=== PATIENT | male | born 1970 | race Hispanic/Latino ===

== ENCOUNTER 2018-11-28 05:30 | Day surgery (SDC) | payer BC, OTHER ==
[~2018-11-28] VITALS: Ht 165.1 cm; Wt 62.1 kg
[~2018-11-28 05:30] MED LIST: GABA800T9 PO; METF500T7 PO; TRAM50TA4 PO
[2018-11-28 05:48] VITALS: BP 144/78
[2018-11-28] MEDS ORDERED: SODIUM CHLORIDE 0.9% 1000ML 1,000 ML IV ONE (05:51)
[2018-11-28] MEDS ORDERED: CHOLESTEROL MED (06:29)
[2018-11-28] MEDS ORDERED: OCREVUS (06:29)
[2018-11-28] MEDS ORDERED: PROPOFOL 10 MG/ML 20ML VIAL IV ONE ×2 (06:43)
[2018-11-28] MEDS ORDERED: LIDOCAINE HCL 1% 20 ML VIAL ONE (06:43)
[2018-11-28 07:10] VITALS: BP 102/68
[2018-11-28 07:15] VITALS: BP 103/69
[2018-11-28 07:20] VITALS: BP 146/86
[2018-11-28 07:25] VITALS: BP 132/68
[2018-11-28 07:30] VITALS: BP 130/69
== END 2018-11-28 07:39 | disposition home or self-care (01) ==
LOC: DAH 05:30 → ENDO 05:30
PROVIDERS: ATTEND Internal Medicine
DX: K29.50 Unspecified chronic gastritis without bleeding (principal); K31.89 Other diseases of stomach and duodenum; K22.8 Other specified diseases of esophagus; E78.1 Pure hyperglyceridemia; K21.9 Gastro-esophageal reflux disease without esophagitis; E11.9 Type 2 diabetes mellitus without complications; G71.00 Muscular dystrophy, unspecified; G40.909 Epilepsy, unspecified, not intractable, without status epilepticus; Z86.010 Personal history of colon polyps; Z79.899 Other long term (current) drug therapy; Z79.84 Long term (current) use of oral hypoglycemic drugs
CPT/HCPCS: 43239; 82948 ×2; 88305; A4606; J2704 ×2; J7030

== ENCOUNTER 2024-03-14 09:06 | Day surgery (SDC) | payer MEDICARE ==
[2024-03-14] VITALS (11 sets, daily range): BP systolic 114–144; BP diastolic 50–64; PULSE 58–75; RESP 14–19
[~2024-03-14] VITALS: Ht 162.6 cm; Wt 63.0 kg
[~2024-03-14 09:06] MED LIST changes: +ATOR10 PO; +DICY20TA3 PO; +GABA600T10 PO; -GABA800T9 PO; -METF500T7 PO; +METF750T46 PO; +OMEP40CA21 PO; -TRAM50TA4 PO
[2024-03-14] MEDS: 0.9%NACL 1000ML 1,000 ML IV ONE (10:40)
[2024-03-14] MEDS ORDERED: PROPOFOL 10 MG/ML 20ML VIAL IV ONE ×2 (13:36)
== END 2024-03-14 15:30 | disposition home or self-care (01) ==
LOC: ENDO 09:06 → DAH 09:06 → ENDO 15:30
PROVIDERS: ATTEND Internal Medicine Gastroenterology
DX: R19.4 Change in bowel habit (principal); K52.9 Noninfective gastroenteritis and colitis, unspecified; K57.30 Diverticulosis of large intestine without perforation or abscess without bleeding; R63.4 Abnormal weight loss; R68.81 Early satiety; K29.50 Unspecified chronic gastritis without bleeding; R10.12 Left upper quadrant pain; K76.0 Fatty (change of) liver, not elsewhere classified; R14.0 Abdominal distension (gaseous); K21.9 Gastro-esophageal reflux disease without esophagitis; E11.9 Type 2 diabetes mellitus without complications; F41.9 Anxiety disorder, unspecified; E78.5 Hyperlipidemia, unspecified; G35 Multiple sclerosis; Z79.84 Long term (current) use of oral hypoglycemic drugs; Z86.010 Personal history of colon polyps; Z79.899 Other long term (current) drug therapy; Z80.0 Family history of malignant neoplasm of digestive organs; Z87.891 Personal history of nicotine dependence; Z68.23 Body mass index [BMI] 23.0-23.9, adult
CPT/HCPCS: 82948; 43239; 45380; J7030 ×2; J2704 ×2; A4620; A4215; A7002; A4222; J3490